=== PATIENT | female | born 2000 | race Hispanic/Latino ===

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

== ENCOUNTER 2022-01-11 00:15 | Emergency (ER) | payer OTHER ==
[2022-01-11] MEDS ORDERED: Ondansetron ODT 4 MG TAB ONE (01:23)
[2022-01-11] MEDS ORDERED: Ondansetron PF 4 MG/2 ML Vial ONE (02:19)
[2022-01-11 02:31] LABS: #Basophils 0.1 thou/uL (0.0-0.2); #Lymphocytes 1.3 thou/uL (1.20-3.40); #Monocytes 0.3 thou/uL (0.11-0.59); #Neutrophils 8.6 thou/uL (1.40-6.50); %Basophils 0.6 % (0.0-1.0); %Eosinophils 0.2 % (0.0-10.0); %Lymphocytes 12.7 % (28.0-48.0); %Monocytes 2.7 % (0.0-4.0); %Neutrophils 83.8 % (31.0-61.0); Hemoglobin 15.5 g/dL (12.0-16.0); Mean Corpuscular HGB CONC 34.9 g/dL (32.0-36.0); Mean Corpuscular Volume 88.7 fl (78.0-98.0); Mean Platelet Volume 7.9 fL (7.4-10.4); Platelet Count 447 10x3/uL (130-400); RBC Distribution Width 11.8 % (11.5-14.5); Red Blood Cell (RBC) Count 5.02 mill/uL (4.00-5.20); White Blood Cell (WBC) Count 10.2 10x3/uL (4.8-10.8)
[2022-01-11 02:36] LABS: BHCG - Serum Negative (NEGATIVE); Pregs Control Background? CLEAR/WHITE (CLR/WHITE); Pregs Control Bar Appear? YES (CONTROL BAR)
[2022-01-11] MEDS ORDERED: Promethazine 25 MG TAB ONE (02:47)
[2022-01-11 02:52] LABS: ALT (SGPT) 11 U/L (8-55); AST (SGOT) 18 U/L (5-30); Albumin 5.4 g/dL (3.5-5.0); Alkaline Phosphatase 79 U/L (40-100); Anion Gap 20 mmol/L (10-20); BUN (Urea Nitrogen) 20 mg/dL (8.4-21.0); Bilirubin, Total 1.2 mg/dL (0.2-1.2); Calc. Creatinine Clearance 0 mL/min (70-130); Calcium 10.9 mg/dL (7.8-10.44); Carbon Dioxide 23 mmol/L (22-29); Chloride 102 mmol/L (98-107); Estimated GFR 112; Globulin 3.7 g/dL (2.4-3.5); Glucose 125 mg/dL (70-105); Protein, Total 9.1 g/dL (6.0-8.3); Sodium 142 mmol/L (136-145)
[2022-01-11] MEDS ORDERED: Promethazine HCl 12.5 MG in Sodium Chloride 0.9% 50 ML IVPB SCH ×2 (03:00→10:45)
[2022-01-11] MEDS ORDERED: Haloperidol Lactate 5 MG/ML VIAL ONE (03:08)
[2022-01-11 03:23] LABS: SARS-CoV-2 NAA Rapid Test Not Detected (NotDetected)
[2022-01-11] MEDS ORDERED: Potassium Chloride 20 MEQ TAB ONE (03:24)
[2022-01-11 04:16] LABS: Magnesium 1.9 mg/dL (1.7-2.2)
[2022-01-11 06:07] LABS: Bilirubin Negative (Negative); Blood, Urine Negative (Negative); Clarity Clear (Clear); Glucose, Urine (Dipstick) Normal (Negative); Ketone, Urine 100 mg/dL (Negative); Leukocyte Negative Leu/uL (Negative); Nitrite Negative (Negative); Protein, Urine (Dipstick) 10 mg/dL (Neg-Trace); Urobilinogen Normal mg/dL (Less than 2)
[2022-01-11 06:10] LABS: Specific Gravity, Urine Greater than 1.060 (1.002-1.036)
[2022-01-11] MEDS ORDERED: Piperacillin/Tazobactam 4.5 GM VIAL ONE (07:48)
[2022-01-11] MEDS ORDERED: Iopamidol-370 76% 500 ML 1 ML ONE (08:51)
[2022-01-11] MEDS ORDERED: MD-Gastroview 120 ML BOT ONE (09:06)
[2022-01-11] MEDS ORDERED: FENTANYL 50 MCG/ML 1 ML VIAL ONE (10:36)
== END 2022-01-11 14:12 | disposition short-term general hospital (02) ==
LOC: ERS 00:15
DX: K52.9 Noninfective gastroenteritis and colitis, unspecified (principal); R11.15 Cyclical vomiting syndrome unrelated to migraine; F17.290 Nicotine dependence, other tobacco product, uncomplicated; Z20.822 Contact with and (suspected) exposure to COVID-19
CPT/HCPCS: 71045; 71250; 74177; 74220; 80053; 81003; 83735; 84703; 85025; 93005; 96361; 96374; 96375; 96376; J1630; J2405; J2543; J2550; J3010; Q0162; Q0169; Q9963; Q9967

== ENCOUNTER 2022-06-16 05:02 | Emergency (ER) | payer BC, OTHER ==
[2022-06-16] MEDS ORDERED: predniSONE 20 MG TAB ONE (05:20)
[2022-06-16] MEDS ORDERED: Ipratropium/Albuterol 3 ML NEB ONE (05:28)
== END 2022-06-16 06:12 | disposition home or self-care (01) ==
LOC: ERS 05:02
DX: J45.909 Unspecified asthma, uncomplicated (principal)
CPT/HCPCS: 71045; 94640; J7512; J7620

== ENCOUNTER 2022-06-16 07:36 | Inpatient (IN) | payer BC, OTHER ==
[2022-06-16] MEDS ORDERED: Acetaminophen 325 MG TAB ONE (09:23)
[2022-06-16] MEDS ORDERED: Ondansetron ODT 4 MG TAB ONE (09:23)
[2022-06-16 09:34] LABS: Hemoglobin 14.1 g/dL (12.0-16.0); Mean Corpuscular HGB CONC 34.7 g/dL (32.0-36.0); Mean Corpuscular Hemoglobin 30.7 pg (25.0-35.0); Mean Corpuscular Volume 88.5 fl (78.0-98.0); Mean Platelet Volume 7.7 fL (7.4-10.4); Platelet Count 325 10x3/uL (130-400); RBC Distribution Width 11.5 % (11.5-14.5); Red Blood Cell (RBC) Count 4.59 mill/uL (4.00-5.20); White Blood Cell (WBC) Count 17.5 10x3/uL (4.8-10.8)
[2022-06-16] MEDS ORDERED: Ketorolac Tromethamine 30 MG/ML VIAL ONE (09:39)
[2022-06-16 09:43] LABS: ALT (SGPT) 11 U/L (8-55); AST (SGOT) 16 U/L (5-34); Albumin 4.8 g/dL (3.5-5.0); Alkaline Phosphatase 66 U/L (40-100); Anion Gap 14 mmol/L (10-20); BUN (Urea Nitrogen) 7 mg/dL (7.0-18.7); Bilirubin, Total 0.4 mg/dL (0.2-1.2); Calc. Creatinine Clearance 0 mL/min (70-130); Calcium 10.3 mg/dL (7.8-10.44); Carbon Dioxide 20 mmol/L (22-29); Chloride 108 mmol/L (98-107); Estimated GFR 128; Globulin 3.3 g/dL (2.4-3.5); Glucose 116 mg/dL (70-105); Potassium 3.9 mmol/L (3.5-5.1); Protein, Total 8.1 g/dL (6.0-8.3); Sodium 138 mmol/L (136-145)
[2022-06-16 09:50] LABS: Band 16 % (5-11); Lymphocytes 4 % (28-48); MDiff Complete? YES; Monocytes 1 % (0-4); Neutrophil 79 % (31-61); Platelet Morphology Comment Appears Adequate; RBC Morphology Normal
[2022-06-16 10:17] LABS: SARS-CoV-2 NAA Rapid Test Not Detected (NotDetected)
[2022-06-16] MEDS ORDERED: Sodium Chloride 0.9% 100 ML ONE (10:44)
[2022-06-16] MEDS ORDERED: Morphine 4 MG/ML VIAL ONE (10:44)
[2022-06-16] MEDS ORDERED: cefTRIAXone (ROCEPHIN) 1 GM VIAL ONE (10:44)
[2022-06-16] MEDS ORDERED: Azithromycin 500 MG VIAL ONE (11:19)
[2022-06-16] MEDS ORDERED: Ondansetron PF 4 MG/2 ML Vial IVP PRN (11:28)
[2022-06-16 11:51] LABS: Bilirubin Negative (Negative); Blood, Urine Negative (Negative); Clarity Clear (Clear); Glucose, Urine (Dipstick) Normal (Negative); Ketone, Urine Trace mg/dL (Negative); Leukocyte Negative Leu/uL (Negative); Nitrite Negative (Negative); Protein, Urine (Dipstick) Negative (Neg-Trace); Specific Gravity, Urine 1.007 (1.002-1.036); Urobilinogen Normal mg/dL (Less than 2)
[2022-06-16] MEDS ORDERED: methylPREDNISolone Sod Succ 40 MG VIAL IVP SCH (12:30)
[2022-06-16] MEDS ORDERED: methylPREDNISolone Sod Succ 40 MG VIAL ONE (12:41)
[2022-06-16] MEDS: Lactated Ringer's 1,000 ML IV SCH ×2 (12:52→21:22)
[2022-06-16 16:44] VITALS: BMI 27.6
[2022-06-16] MEDS: Ipratropium Bromide 2.5 ml Neb NEB SCH ×3 (17:08→21:49)
[2022-06-16] MEDS: methylPREDNISolone Sod Succ 40 MG VIAL IVP SCH (17:32)
[2022-06-16] MEDS: Famotidine/PF 20 mg/2ml Vial SLOW IVP SCH (21:20)
[2022-06-17] MEDS: methylPREDNISolone Sod Succ 40 MG VIAL IVP SCH ×2 (00:57→06:32)
[2022-06-17] MEDS: Guaifenesin DM 100-10/5 ML UDCUP PO PRN ×2 (00:59→13:33)
[2022-06-17] MEDS: Ipratropium Bromide 2.5 ml Neb NEB SCH ×5 (02:03→23:20)
[2022-06-17 05:09] LABS: #Lymphocytes 0.5 thou/uL (1.20-3.40); #Monocytes 0.1 thou/uL (0.11-0.59); #Neutrophils 11.5 thou/uL (1.40-6.50); %Lymphocytes 3.8 % (28.0-48.0); %Monocytes 0.6 % (0.0-4.0); %Neutrophils 95.6 % (31.0-61.0); Hemoglobin 11.9 g/dL (12.0-16.0); Mean Corpuscular HGB CONC 34.9 g/dL (32.0-36.0); Mean Corpuscular Hemoglobin 31.3 pg (25.0-35.0); Mean Corpuscular Volume 89.8 fl (78.0-98.0); Mean Platelet Volume 7.8 fL (7.4-10.4); Platelet Count 290 10x3/uL (130-400); RBC Distribution Width 11.5 % (11.5-14.5); Red Blood Cell (RBC) Count 3.79 mill/uL (4.00-5.20); White Blood Cell (WBC) Count 12.1 10x3/uL (4.8-10.8)
[2022-06-17 05:30] LABS: Anion Gap 13 mmol/L (10-20); BUN (Urea Nitrogen) 7 mg/dL (7.0-18.7); Calc. Creatinine Clearance 142 mL/min (70-130); Carbon Dioxide 18 mmol/L (22-29); Chloride 112 mmol/L (98-107); Estimated GFR 131; Glucose 125 mg/dL (70-105); Potassium 3.8 mmol/L (3.5-5.1); Sodium 139 mmol/L (136-145)
[2022-06-17] MEDS: Lactated Ringer's 1,000 ML IV SCH ×2 (06:35→15:22)
[2022-06-17] MEDS: Famotidine/PF 20 mg/2ml Vial SLOW IVP SCH ×2 (08:36→20:20)
[2022-06-17] MEDS ORDERED: cefTRIAXone\\ROCEPHIN 1 GM in Sodium Chloride 0.9% 100 ML IVPB SCH (11:00)
[2022-06-17] MEDS ORDERED: Azithromycin 500 MG in Sodium Chloride 0.9% 250 ML 250 ML IVPB SCH (11:30)
[2022-06-17] MEDS ORDERED: Acetaminophen 325 MG TAB PO PRN (13:23)
[2022-06-17] MEDS ORDERED: Ibuprofen 600 MG TAB PO PRN (13:23)
[2022-06-18] MEDS: Lactated Ringer's 1,000 ML IV SCH ×2 (01:26→08:15)
[2022-06-18] MEDS: Ipratropium Bromide 2.5 ml Neb NEB SCH ×2 (02:16→06:48)
[2022-06-18] MEDS ORDERED: predniSONE 20 MG TAB PO SCH (08:00)
[2022-06-18] MEDS: Famotidine/PF 20 mg/2ml Vial SLOW IVP SCH (08:14)
[2022-06-18] MEDS: Guaifenesin DM 100-10/5 ML UDCUP PO PRN (08:14)
[2022-06-18 08:44] VITALS: BP 117/65; TEMP 98.9
[2022-06-18] MEDS ORDERED: Ipratropium/Albuterol 3 ML NEB NEB SCH (10:30)
== END 2022-06-18 11:05 | disposition home or self-care (01) | DRG 871 ==
LOC: ERS 07:36 → ERHOLD 11:15 → 2SW 16:03
PROVIDERS: ADMIT Internal Medicine; ATTEND Emergency Medicine
DX: A41.9 Sepsis, unspecified organism (principal); J18.9 Pneumonia, unspecified organism; J96.01 Acute respiratory failure with hypoxia; Z20.822 Contact with and (suspected) exposure to COVID-19
CPT/HCPCS: 36415; 71046; 80048; 80053; 81003; 83605; 85025; 87040; 87081; 87430; 93005; 94640; 96361; 96365; 96367; 96375; J0456; J0696; J1650; J1885; J2270; J2920; J3490; J7050; J7120; J7512; J7611; J7620; Q0162; S0028

== ENCOUNTER 2022-08-09 23:41 | Emergency (ER) | payer BC, OTHER ==
[2022-08-10] MEDS ORDERED: Haloperidol Lactate 5 MG/ML VIAL ONE (00:21)
[2022-08-10] MEDS ORDERED: Ketorolac Tromethamine 30 MG/ML VIAL ONE (00:21)
[2022-08-10] MEDS ORDERED: Famotidine/PF 20 mg/2ml Vial ONE (00:47)
[2022-08-10 00:56] LABS: #Eosinphils 0.1 thou/uL (0.0-0.7); #Monocytes 0.5 thou/uL (0.11-0.59); #Neutrophils 6.1 thou/uL (1.40-6.50); %Basophils 0.4 % (0.0-1.0); %Eosinophils 0.7 % (0.0-10.0); %Lymphocytes 21.7 % (28.0-48.0); %Monocytes 5.9 % (0.0-4.0); %Neutrophils 71.2 % (31.0-61.0); Hemoglobin 12.7 g/dL (12.0-16.0); Mean Corpuscular Hemoglobin 29.9 pg (25.0-35.0); Mean Corpuscular Volume 87.8 fl (78.0-98.0); Mean Platelet Volume 10.3 fL (7.4-10.4); Platelet Count 352 10x3/uL (130-400); RBC Distribution Width 12.6 % (11.5-14.5); Red Blood Cell (RBC) Count 4.25 mill/uL (4.00-5.20); White Blood Cell (WBC) Count 8.5 10x3/uL (4.8-10.8)
[2022-08-10 01:19] LABS: BHCG - Serum Negative (NEGATIVE); Pregs Control Background? CLEAR/WHITE (CLR/WHITE); Pregs Control Bar Appear? YES (CONTROL BAR)
[2022-08-10 01:22] LABS: ALT (SGPT) 9 U/L (8-55); AST (SGOT) 18 U/L (5-34); Albumin 4.5 g/dL (3.5-5.0); Alkaline Phosphatase 65 U/L (40-100); Anion Gap 18 mmol/L (10-20); BUN (Urea Nitrogen) 11 mg/dL (7.0-18.7); Bilirubin, Total 0.6 mg/dL (0.2-1.2); Calc. Creatinine Clearance 0 mL/min (70-130); Calcium 10.3 mg/dL (7.8-10.44); Carbon Dioxide 17 mmol/L (22-29); Chloride 107 mmol/L (98-107); Estimated GFR 128; Glucose 113 mg/dL (70-105); Lipase 20 U/L (8-78); Potassium 2.9 mmol/L (3.5-5.1); Protein, Total 7.5 g/dL (6.0-8.3); Sodium 139 mmol/L (136-145)
[2022-08-10] MEDS ORDERED: Potassium Chloride 20 MEQ TAB ONE (01:44)
[2022-08-10] MEDS ORDERED: Potassium Chloride 20 MEQ/100 ML PREMIX BAG ONE (01:44)
[2022-08-10] MEDS ORDERED: Morphine 4 MG/ML VIAL ONE (03:04)
[2022-08-10] MEDS ORDERED: Iopamidol-370 76% 500 ML MDV (1 ML CHARGE) ONE (17:07)
== END 2022-08-10 03:19 | disposition home or self-care (01) ==
LOC: ERS 23:41
DX: R10.13 Epigastric pain (principal)
CPT/HCPCS: 36415; 74177; 80053; 83690; 84484; 84703; 85025; 93005; 96361; 96365; 96375; J1630; J1885; J2270; J3480; Q9967; S0028

== ENCOUNTER 2022-10-04 07:53 | Emergency (ER) | payer BC, OTHER ==
[2022-10-04] MEDS ORDERED: Ondansetron ODT 4 MG TAB ONE (08:01)
[2022-10-04] MEDS ORDERED: Haloperidol Lactate 5 MG/ML VIAL ONE (08:18)
[2022-10-04 08:35] LABS: #Monocytes 0.3 thou/uL (0.11-0.59); #Neutrophils 7.2 thou/uL (1.40-6.50); %Basophils 0.3 % (0.0-1.0); %Eosinophils 0.2 % (0.0-10.0); %Lymphocytes 17.1 % (28.0-48.0); %Neutrophils 79.1 % (31.0-61.0); Hematocrit 39.5 % (36.0-47.0); Hemoglobin 13.7 g/dL (12.0-16.0); Mean Corpuscular HGB CONC 34.7 g/dL (32.0-36.0); Mean Corpuscular Volume 86.4 fl (78.0-98.0); Mean Platelet Volume 9.9 fL (7.4-10.4); Platelet Count 387 10x3/uL (130-400); RBC Distribution Width 12.7 % (11.5-14.5); Red Blood Cell (RBC) Count 4.57 mill/uL (4.00-5.20); White Blood Cell (WBC) Count 9.1 10x3/uL (4.8-10.8)
[2022-10-04 08:51] LABS: BHCG - Serum Negative (NEGATIVE); Pregs Control Background? CLEAR/WHITE (CLR/WHITE); Pregs Control Bar Appear? YES (CONTROL BAR)
[2022-10-04 08:58] LABS: ALT (SGPT) 11 U/L (8-55); AST (SGOT) 20 U/L (5-34); Albumin 4.7 g/dL (3.5-5.0); Alkaline Phosphatase 65 U/L (40-100); Anion Gap 16 mmol/L (10-20); BUN (Urea Nitrogen) 6 mg/dL (7.0-18.7); Bilirubin, Total 0.3 mg/dL (0.2-1.2); Calc. Creatinine Clearance 0 mL/min (70-130); Calcium 9.9 mg/dL (7.8-10.44); Carbon Dioxide 19 mmol/L (22-29); Chloride 106 mmol/L (98-107); Estimated GFR 125; Glucose 126 mg/dL (70-105); Potassium 3.4 mmol/L (3.5-5.1); Protein, Total 7.7 g/dL (6.0-8.3); Sodium 138 mmol/L (136-145)
== END 2022-10-04 09:21 | disposition home or self-care (01) ==
LOC: ERS 07:53
DX: R11.2 Nausea with vomiting, unspecified (principal)
CPT/HCPCS: 36415; 71045; 80053; 84703; 85025; 93005; 96374; J1630; Q0162

== ENCOUNTER 2022-11-28 10:04 | Emergency (ER) | payer BC, OTHER ==
[~2022-11-28 10:04] MED LIST changes: -Iopamidol 370 76% 100 ML VIAL ONE; +Iopamidol-370 76% 500 ML MDV (1 ML CHARGE) ONE
[2022-11-28] MEDS ORDERED: Ondansetron ODT 4 MG TAB ONE (11:07)
[2022-11-28] MEDS ORDERED: Metoclopramide HCl 10 MG/2 ML VIAL ONE (11:32)
[2022-11-28] MEDS ORDERED: Ketorolac Tromethamine 30 MG/ML VIAL ONE (11:32)
[2022-11-28 11:45] LABS: #Monocytes 0.3 thou/uL (0.11-0.59); #Neutrophils 9.8 thou/uL (1.40-6.50); %Basophils 0.4 % (0.0-1.0); %Eosinophils 0.2 % (0.0-10.0); %Monocytes 2.5 % (0.0-4.0); %Neutrophils 87.6 % (31.0-61.0); Hematocrit 39.2 % (36.0-47.0); Hemoglobin 13.4 g/dL (12.0-16.0); Mean Corpuscular HGB CONC 34.2 g/dL (32.0-36.0); Mean Corpuscular Hemoglobin 30.2 pg (25.0-35.0); Mean Corpuscular Volume 88.3 fl (78.0-98.0); Mean Platelet Volume 9.8 fL (7.4-10.4); Platelet Count 356 10x3/uL (130-400); RBC Distribution Width 12.2 % (11.5-14.5); Red Blood Cell (RBC) Count 4.44 mill/uL (4.00-5.20); White Blood Cell (WBC) Count 11.2 10x3/uL (4.8-10.8)
[2022-11-28 11:50] LABS: Pregu Control Background? CLEAR/WHITE (CLR/WHITE); Pregu Control Bar Appear? YES (CONTROL BAR); Specific Gravity 1.021 (1.002-1.036)
[2022-11-28 11:53] LABS: BHCG - Serum Negative (NEGATIVE); Pregs Control Background? CLEAR/WHITE (CLR/WHITE); Pregs Control Bar Appear? YES (CONTROL BAR)
[2022-11-28 11:53] LABS: Pregnancy Test - Urine (BHCG) Negative (Negative)
[2022-11-28 12:15] LABS: ALT (SGPT) 9 U/L (8-55); AST (SGOT) 14 U/L (5-34); Albumin 4.8 g/dL (3.5-5.0); Alkaline Phosphatase 63 U/L (40-100); Anion Gap 16 mmol/L (10-20); BUN (Urea Nitrogen) 16 mg/dL (7.0-18.7); Bilirubin, Total 0.4 mg/dL (0.2-1.2); Calc. Creatinine Clearance 0 mL/min (70-130); Calcium 10.2 mg/dL (7.8-10.44); Carbon Dioxide 22 mmol/L (22-29); Chloride 103 mmol/L (98-107); Estimated GFR 130; Glucose 106 mg/dL (70-105); Lipase 24 U/L (8-78); Potassium 3.5 mmol/L (3.5-5.1); Protein, Total 7.8 g/dL (6.0-8.3); Sodium 137 mmol/L (136-145)
== END 2022-11-28 13:25 | disposition home or self-care (01) ==
LOC: ERS 10:04
DX: R11.2 Nausea with vomiting, unspecified (principal); R10.9 Unspecified abdominal pain; F12.10 Cannabis abuse, uncomplicated; N83.291 Other ovarian cyst, right side; Z11.52 Encounter for screening for COVID-19
CPT/HCPCS: 71046; 74177; 80053; 81025; 83690; 84703; 85025; 87635; 93005; 96361; 96374; 96375; J1885; J2765; Q0162; Q9967

== ENCOUNTER 2023-01-08 14:09 | Emergency (ER) | payer BC, OTHER ==
[2023-01-08] MEDS ORDERED: Ondansetron PF 4 MG/2 ML Vial ONE (14:31)
[2023-01-08] MEDS ORDERED: Morphine 4 MG/ML VIAL ONE (14:48)
[2023-01-08 15:06] LABS: #Monocytes 0.3 thou/uL (0.11-0.59); #Neutrophils 9.8 thou/uL (1.40-6.50); %Basophils 0.3 % (0.0-1.0); %Lymphocytes 9.6 % (28.0-48.0); %Monocytes 2.9 % (0.0-4.0); %Neutrophils 86.7 % (31.0-61.0); Hematocrit 42.9 % (36.0-47.0); Mean Corpuscular Hemoglobin 30.1 pg (25.0-35.0); Platelet Count 411 10x3/uL (130-400); RBC Distribution Width 11.9 % (11.5-14.5); Red Blood Cell (RBC) Count 4.99 mill/uL (4.00-5.20); White Blood Cell (WBC) Count 11.3 10x3/uL (4.8-10.8)
[2023-01-08 15:29] LABS: ALT (SGPT) 11 U/L (8-55); AST (SGOT) 18 U/L (5-34); Albumin 5.2 g/dL (3.5-5.0); Alkaline Phosphatase 79 U/L (40-100); Anion Gap 19 mmol/L (10-20); BUN (Urea Nitrogen) 18 mg/dL (7.0-18.7); Bilirubin, Total 0.9 mg/dL (0.2-1.2); Calc. Creatinine Clearance 0 mL/min (70-130); Calcium 10.7 mg/dL (7.8-10.44); Carbon Dioxide 19 mmol/L (22-29); Chloride 103 mmol/L (98-107); Estimated GFR 119; Globulin 3.6 g/dL (2.4-3.5); Glucose 125 mg/dL (70-105); Lipase 16 U/L (8-78); Potassium 3.3 mmol/L (3.5-5.1); Protein, Total 8.8 g/dL (6.0-8.3); Sodium 138 mmol/L (136-145)
[2023-01-08 18:29] LABS: Lactic Acid 0.9 mmol/L (0.5-2.2)
[2023-01-08 18:53] LABS: Bacteria/HPF None Seen HPF (None Seen); Bilirubin Negative (Negative); Blood, Urine 2+ (Negative); CAUTI Indications for Culture Pelvic or flank pain; Clarity Clear (Clear); Glucose, Urine (Dipstick) Normal (Negative); Ketone, Urine Greater than 150 mg/dL (Negative); Leukocyte Negative Leu/uL (Negative); Nitrite Negative (Negative); Protein, Urine (Dipstick) 20 mg/dL (Neg-Trace); RBC/HPF 21-50 HPF (0-3); Specific Gravity, Urine 1.026 (1.002-1.036); Squamous Epithelial 0-3 HPF (0-3); Urobilinogen Normal mg/dL (Less than 2); WBC/HPF 0-3 HPF (0-3)
[2023-01-08 18:54] LABS: Pregnancy Test - Urine (BHCG) Negative (Negative); Pregu Control Background? CLEAR/WHITE (CLR/WHITE); Pregu Control Bar Appear? YES (CONTROL BAR); Specific Gravity 1.026 (1.002-1.036)
[2023-01-08 18:56] LABS: Urine Culture Reflex No No
== END 2023-01-08 19:03 | disposition home or self-care (01) ==
LOC: ERS 14:09
DX: R19.7 Diarrhea, unspecified (principal); R11.2 Nausea with vomiting, unspecified
CPT/HCPCS: 36415; 76705; 80053; 81001; 81025; 83605; 83690; 85025; 96361; 96374; 96375; J2270; J2405

== ENCOUNTER 2023-02-03 08:46 | Emergency (ER) | payer BC, OTHER ==
[2023-02-03] MEDS ORDERED: Ondansetron ODT 4 MG TAB ONE (09:27)
[2023-02-03 09:41] LABS: Bilirubin Negative (Negative); Blood, Urine Small (Negative); Glucose, Urine (Dipstick) Negative (Negative); Ketone, Urine Negative (Negative); Leukocyte Negative (Negative); Nitrite Negative (Negative); Protein, Urine (Dipstick) Negative (Neg-Trace); Urobilinogen 0.2 mg/dL (Less than 2)
[2023-02-03 09:45] LABS: Clarity Hazy (Clear); Pregnancy Test - Urine (BHCG) Negative (Negative); Pregu Control Background? CLEAR/WHITE (CLR/WHITE); Pregu Control Bar Appear? YES (CONTROL BAR)
[2023-02-03 09:48] LABS: CAUTI Indications for Culture Dysuria,urgency,freq; RBC/HPF 0-3 HPF (0-3); WBC/HPF None Seen HPF (0-3)
[2023-02-03 09:49] LABS: Bacteria/HPF None Seen HPF (None Seen); Urine Culture Reflex No No
[2023-02-03 09:52] LABS: Amphetamine Not Detected (NotDetected); Barbiturates Screen Not Detected (NotDetected); Benzodiazepine Screen Not Detected (NotDetected); Cocaine Metabolite Screen Not Detected (NotDetected); Methadone Not Detected (NotDetected); Methamphetamine Not Detected (NotDetected); Opiate Screen Not Detected (NotDetected); Oxycodone Screen Not Detected (NotDetected); Phencyclidine (PCP) Not Detected (NotDetected); THC/Cannabinoid Screen Detected (NotDetected); Tricyclic Screen Not Detected (NotDetected)
[2023-02-03] MEDS ORDERED: Dicyclomine 20 MG/2 ML VIAL ONE (10:41)
[2023-02-03] MEDS ORDERED: diphenhydrAMINE 50 MG/ML VIAL ONE (11:01)
[2023-02-03] MEDS ORDERED: Haloperidol Lactate 5 MG/ML VIAL ONE (11:02)
[2023-02-03 11:04] LABS: #Eosinphils 0.1 thou/uL (0.0-0.7); #Monocytes 0.3 thou/uL (0.11-0.59); %Basophils 0.5 % (0.0-1.0); %Eosinophils 0.8 % (0.0-10.0); %Lymphocytes 12.3 % (28.0-48.0); %Neutrophils 83.2 % (31.0-61.0); Hematocrit 41.2 % (36.0-47.0); Hemoglobin 14.1 g/dL (12.0-16.0); Mean Corpuscular HGB CONC 34.2 g/dL (32.0-36.0); Mean Corpuscular Hemoglobin 30.5 pg (25.0-35.0); Mean Corpuscular Volume 89.2 fl (78.0-98.0); Mean Platelet Volume 9.8 fL (7.4-10.4); Platelet Count 339 10x3/uL (130-400); RBC Distribution Width 12.3 % (11.5-14.5); Red Blood Cell (RBC) Count 4.62 mill/uL (4.00-5.20); White Blood Cell (WBC) Count 8.5 10x3/uL (4.8-10.8)
[2023-02-03 11:30] LABS: ALT (SGPT) 9 U/L (8-55); AST (SGOT) 18 U/L (5-34); Albumin 4.7 g/dL (3.5-5.0); Alkaline Phosphatase 59 U/L (40-100); Anion Gap 12 mmol/L (10-20); BUN (Urea Nitrogen) 13 mg/dL (7.0-18.7); Bilirubin, Total 0.6 mg/dL (0.2-1.2); Calc. Creatinine Clearance 0 mL/min (70-130); Carbon Dioxide 24 mmol/L (22-29); Chloride 107 mmol/L (98-107); Estimated GFR 129; Globulin 2.9 g/dL (2.4-3.5); Glucose 105 mg/dL (70-105); Potassium 4.1 mmol/L (3.5-5.1); Protein, Total 7.6 g/dL (6.0-8.3); Sodium 139 mmol/L (136-145)
== END 2023-02-03 12:59 | disposition home or self-care (01) ==
LOC: ERS 08:46
DX: R11.2 Nausea with vomiting, unspecified (principal)
CPT/HCPCS: 80053; 80306; 81001; 81025; 85025; 96361; 96372; 96374; 96375; J1200; J1630; Q0162

== ENCOUNTER 2023-02-04 07:30 | Emergency (ER) | payer BC ==
[2023-02-04 08:35] LABS: #Eosinphils 0.1 thou/uL (0.0-0.7); #Monocytes 0.3 thou/uL (0.11-0.59); #Neutrophils 3.4 thou/uL (1.40-6.50); %Basophils 0.4 % (0.0-1.0); %Eosinophils 2.1 % (0.0-10.0); %Lymphocytes 25.1 % (28.0-48.0); %Monocytes 6.1 % (0.0-4.0); %Neutrophils 65.9 % (31.0-61.0); Hematocrit 38.7 % (36.0-47.0); Hemoglobin 12.9 g/dL (12.0-16.0); Mean Corpuscular HGB CONC 33.3 g/dL (32.0-36.0); Mean Platelet Volume 9.8 fL (7.4-10.4); Platelet Count 281 10x3/uL (130-400); RBC Distribution Width 12.3 % (11.5-14.5); White Blood Cell (WBC) Count 5.2 10x3/uL (4.8-10.8)
[2023-02-04 08:39] LABS: BHCG - Serum Negative (NEGATIVE); Pregs Control Background? CLEAR/WHITE (CLR/WHITE); Pregs Control Bar Appear? YES (CONTROL BAR)
[2023-02-04] MEDS ORDERED: Ondansetron PF 4 MG/2 ML Vial ONE (08:40)
[2023-02-04] MEDS ORDERED: Ipratropium/Albuterol 3 ML NEB ONE (08:55)
[2023-02-04 08:56] LABS: ALT (SGPT) 10 U/L (8-55); AST (SGOT) 24 U/L (5-34); Albumin 4.4 g/dL (3.5-5.0); Alkaline Phosphatase 58 U/L (40-100); Anion Gap 14 mmol/L (10-20); BUN (Urea Nitrogen) 12 mg/dL (7.0-18.7); Bilirubin, Total 0.7 mg/dL (0.2-1.2); Calc. Creatinine Clearance 0 mL/min (70-130); Calcium 9.5 mg/dL (7.8-10.44); Carbon Dioxide 19 mmol/L (22-29); Chloride 108 mmol/L (98-107); Estimated GFR 129; Globulin 3.1 g/dL (2.4-3.5); Glucose 96 mg/dL (70-105); Potassium 3.6 mmol/L (3.5-5.1); Protein, Total 7.5 g/dL (6.0-8.3); Sodium 137 mmol/L (136-145)
[2023-02-04 09:03] LABS: Bilirubin Negative (Negative); Blood, Urine Large (Negative); Glucose, Urine (Dipstick) Negative (Negative); Ketone, Urine 15 mg/dL (Negative); Leukocyte Negative (Negative); Nitrite Negative (Negative); Protein, Urine (Dipstick) Negative (Neg-Trace); Urobilinogen 0.2 mg/dL (Less than 2)
[2023-02-04 09:13] LABS: CAUTI Indications for Culture Pelvic or flank pain; Clarity Clear (Clear); RBC/HPF Greater than 50 HPF (0-3); Squamous Epithelial 0-3 HPF (0-3)
[2023-02-04 09:16] LABS: Bacteria/HPF 1+ HPF (None Seen)
[2023-02-04 09:17] LABS: Urine Culture Reflex No No
[2023-02-04 09:49] LABS: SARS-CoV-2 NAA Rapid Test Not Detected (NotDetected)
== END 2023-02-04 10:26 | disposition home or self-care (01) ==
LOC: ERS 07:30
DX: J45.909 Unspecified asthma, uncomplicated (principal); Z20.822 Contact with and (suspected) exposure to COVID-19
CPT/HCPCS: 36415; 71045; 80053; 81001; 84703; 85025; 94640; 96361; 96374; J2405; J7620

== ENCOUNTER 2023-02-05 10:05 | Emergency (ER) | payer BC ==
[2023-02-05 11:06] LABS: #Monocytes 0.4 thou/uL (0.11-0.59); #Neutrophils 6.9 thou/uL (1.40-6.50); %Basophils 0.4 % (0.0-1.0); %Eosinophils 0.4 % (0.0-10.0); %Lymphocytes 18.2 % (28.0-48.0); %Monocytes 4.3 % (0.0-4.0); %Neutrophils 76.5 % (31.0-61.0); Hematocrit 36.9 % (36.0-47.0); Hemoglobin 12.9 g/dL (12.0-16.0); Mean Corpuscular Hemoglobin 30.4 pg (25.0-35.0); Mean Corpuscular Volume 86.8 fl (78.0-98.0); Mean Platelet Volume 9.7 fL (7.4-10.4); Platelet Count 320 10x3/uL (130-400); RBC Distribution Width 12.1 % (11.5-14.5); Red Blood Cell (RBC) Count 4.25 mill/uL (4.00-5.20); White Blood Cell (WBC) Count 9.1 10x3/uL (4.8-10.8)
[2023-02-05] MEDS ORDERED: Haloperidol Lactate 5 MG/ML VIAL ONE (11:12)
[2023-02-05 11:31] LABS: ALT (SGPT) 9 U/L (8-55); AST (SGOT) 19 U/L (5-34); Albumin 4.7 g/dL (3.5-5.0); Alkaline Phosphatase 57 U/L (40-100); Anion Gap 17 mmol/L (10-20); BUN (Urea Nitrogen) 11 mg/dL (7.0-18.7); Bilirubin, Total 0.7 mg/dL (0.2-1.2); Calc. Creatinine Clearance 0 mL/min (70-130); Carbon Dioxide 18 mmol/L (22-29); Chloride 108 mmol/L (98-107); Estimated GFR 129; Globulin 2.9 g/dL (2.4-3.5); Glucose 97 mg/dL (70-105); Potassium 3.5 mmol/L (3.5-5.1); Protein, Total 7.6 g/dL (6.0-8.3); Sodium 139 mmol/L (136-145)
[2023-02-05 11:54] LABS: Bacteria/HPF None Seen HPF (None Seen); Bilirubin Negative (Negative); Blood, Urine 1+ (Negative); CAUTI Indications for Culture Dysuria,urgency,freq; Clarity Clear (Clear); Glucose, Urine (Dipstick) Normal (Negative); Ketone, Urine 60 mg/dL (Negative); Leukocyte Negative Leu/uL (Negative); Nitrite Negative (Negative); Protein, Urine (Dipstick) Negative (Neg-Trace); RBC/HPF 0-3 HPF (0-3); Specific Gravity, Urine 1.014 (1.002-1.036); Squamous Epithelial 0-3 HPF (0-3); Urobilinogen Normal mg/dL (Less than 2); WBC/HPF 0-3 HPF (0-3); pH, Urine 6.5 (5.0-9.0)
[2023-02-05 12:02] LABS: Urine Culture Reflex No No
== END 2023-02-05 12:24 | disposition home or self-care (01) ==
LOC: ERS 10:05
DX: F12.288 Cannabis dependence with other cannabis-induced disorder (principal); R19.7 Diarrhea, unspecified; R11.10 Vomiting, unspecified
CPT/HCPCS: 36415; 80053; 81001; 85025; 96361; 96374; 96375; J1630

== ENCOUNTER 2023-04-18 00:38 | Emergency (ER) | payer BC ==
[2023-04-18 01:36] LABS: #Monocytes 0.3 thou/uL (0.11-0.59); #Neutrophils 9.5 thou/uL (1.40-6.50); %Basophils 0.2 % (0.0-1.0); %Eosinophils 0.1 % (0.0-10.0); %Lymphocytes 15.1 % (21.0-51.0); %Monocytes 2.5 % (0.0-10.0); %Neutrophils 81.8 % (42.0-75.0); Hematocrit 39.2 % (36.0-47.0); Hemoglobin 13.8 g/dL (12.0-16.0); Mean Corpuscular HGB CONC 35.2 g/dL (32.0-36.0); Mean Corpuscular Hemoglobin 29.9 pg (27.0-31.0); Mean Platelet Volume 9.9 fL (7.4-10.4); Platelet Count 388 10x3/uL (130-400); RBC Distribution Width 12.3 % (11.5-14.5); Red Blood Cell (RBC) Count 4.61 mill/uL (4.20-5.40); White Blood Cell (WBC) Count 11.6 10x3/uL (4.8-10.8)
[2023-04-18 01:47] LABS: ALT (SGPT) 10 U/L (8-55); AST (SGOT) 17 U/L (5-34); Albumin 4.8 g/dL (3.5-5.0); Alkaline Phosphatase 57 U/L (40-110); Anion Gap 14 mmol/L (10-20); BUN (Urea Nitrogen) 12 mg/dL (7.0-18.7); Bilirubin, Total 0.7 mg/dL (0.2-1.2); Calc. Creatinine Clearance 0 mL/min (70-130); Calcium 10.3 mg/dL (7.8-10.44); Carbon Dioxide 20 mmol/L (22-29); Chloride 107 mmol/L (98-107); Estimated GFR 124; Glucose 132 mg/dL (70-105); Lipase 17 U/L (8-78); Potassium 3.2 mmol/L (3.5-5.1); Protein, Total 7.8 g/dL (6.0-8.3); Sodium 138 mmol/L (136-145)
[2023-04-18] MEDS ORDERED: Ondansetron ODT 4 MG TAB ONE (01:54)
[2023-04-18] MEDS ORDERED: Ondansetron PF 4 MG/2 ML Vial ONE (02:23)
[2023-04-18 02:42] LABS: BHCG - Serum Negative (NEGATIVE)
[2023-04-18 02:43] LABS: Pregs Control Background? CLEAR/WHITE (CLR/WHITE); Pregs Control Bar Appear? YES (CONTROL BAR)
== END 2023-04-18 03:38 | disposition home or self-care (01) ==
LOC: ERS 00:38
DX: R11.2 Nausea with vomiting, unspecified (principal)
CPT/HCPCS: 36415; 80053; 83690; 84703; 85025; 96361; 96374; J2405; Q0162

== ENCOUNTER 2023-04-22 01:30 | Inpatient (IN) | payer BC, OTHER, SELFPAY ==
[2023-04-22] MEDS ORDERED: diphenhydrAMINE 50 MG/ML VIAL ONE ×2 (01:55→02:54)
[2023-04-22] MEDS ORDERED: Haloperidol Lactate 5 MG/ML VIAL ONE (01:56)
[2023-04-22] MEDS ORDERED: Ketorolac Tromethamine 30 MG (1 mL) VIAL ONE (01:56)
[2023-04-22 02:10] LABS: #Monocytes 0.5 thou/uL (0.11-0.59); #Neutrophils 11.7 thou/uL (1.40-6.50); %Basophils 0.2 % (0.0-1.0); %Eosinophils 0.1 % (0.0-10.0); %Lymphocytes 6.2 % (21.0-51.0); %Monocytes 3.9 % (0.0-10.0); %Neutrophils 89.1 % (42.0-75.0); Hematocrit 41.5 % (36.0-47.0); Hemoglobin 14.8 g/dL (12.0-16.0); Mean Corpuscular HGB CONC 35.7 g/dL (32.0-36.0); Mean Corpuscular Hemoglobin 29.7 pg (27.0-31.0); Mean Corpuscular Volume 83.3 fl (78.0-98.0); Mean Platelet Volume 9.9 fL (7.4-10.4); Platelet Count 320 10x3/uL (130-400); RBC Distribution Width 12.3 % (11.5-14.5); Red Blood Cell (RBC) Count 4.98 mill/uL (4.20-5.40); White Blood Cell (WBC) Count 13.1 10x3/uL (4.8-10.8)
[2023-04-22 02:30] LABS: Acetaminophen 19 mcg/mL (10.0-30.0); Alcohol Less than 10.0 mg/dL (Less than 10); Salicylate Less than 8.0 mg/dL (15.0-30.0)
[2023-04-22 02:31] LABS: ALT (SGPT) 12 U/L (8-55); AST (SGOT) 21 U/L (5-34); Albumin 4.7 g/dL (3.5-5.0); Alkaline Phosphatase 63 U/L (40-110); Anion Gap 19 mmol/L (10-20); BUN (Urea Nitrogen) 11 mg/dL (7.0-18.7); Bilirubin, Total 1.2 mg/dL (0.2-1.2); CK (CPK) 53 U/L (29-168); Calc. Creatinine Clearance 0 mL/min (70-130); Calcium 10.1 mg/dL (7.8-10.44); Carbon Dioxide 21 mmol/L (22-29); Chloride 102 mmol/L (98-107); Estimated GFR 116; Globulin 3.5 g/dL (2.4-3.5); Glucose 113 mg/dL (70-105); Lipase 15 U/L (8-78); Protein, Total 8.2 g/dL (6.0-8.3); Sodium 139 mmol/L (136-145)
[2023-04-22 02:43] LABS: Critical Call Chemistry NUR.SH13@0243; Potassium 2.5 mmol/L (3.5-5.1)
[2023-04-22] MEDS ORDERED: Potassium Chloride 20 MEQ TAB ONE (02:46)
[2023-04-22 02:51] LABS: BHCG - Serum Negative (NEGATIVE); Pregs Control Background? CLEAR/WHITE (CLR/WHITE); Pregs Control Bar Appear? YES (CONTROL BAR)
[2023-04-22] MEDS ORDERED: Metoclopramide HCl 10 MG (2 mL) VIAL ONE (02:55)
[2023-04-22 03:24] LABS: Bacteria/HPF None Seen HPF (None Seen); Bilirubin Negative (Negative); Blood, Urine 3+ (Negative); CAUTI Indications for Culture Fever or rigors; Clarity Clear (Clear); Glucose, Urine (Dipstick) Normal (Negative); Ketone, Urine Greater than 150 mg/dL (Negative); Leukocyte Negative Leu/uL (Negative); Nitrite Negative (Negative); Protein, Urine (Dipstick) 50 mg/dL (Neg-Trace); RBC/HPF 21-50 HPF (0-3); Specific Gravity, Urine 1.043 (1.002-1.036); Urine Culture Reflex No No
[2023-04-22 03:25] LABS: Amphetamine Not Detected (NotDetected); Barbiturates Screen Not Detected (NotDetected); Benzodiazepine Screen Not Detected (NotDetected); Cocaine Metabolite Screen Not Detected (NotDetected); Methadone Not Detected (NotDetected); Methamphetamine Not Detected (NotDetected); Opiate Screen Not Detected (NotDetected); Oxycodone Screen Not Detected (NotDetected); Phencyclidine (PCP) Not Detected (NotDetected); THC/Cannabinoid Screen Detected (NotDetected); Tricyclic Screen Not Detected (NotDetected)
[2023-04-22 04:12] LABS: Influenza A by NAA Not Detected (NotDetected); Influenza B by NAA Not Detected (NotDetected); SARS-CoV-2 NAA Rapid Test Not Detected (NotDetected)
[2023-04-22] MEDS ORDERED: D5 1/2 NS w/20 mEq KCL 1,000 ML ONE (05:10)
[2023-04-22] MEDS ORDERED: Ondansetron PF 4 MG/2 ML Vial IVP PRN (06:00)
[2023-04-22] MEDS ORDERED: Ondansetron ODT 4 MG TAB SL PRN (06:00)
[2023-04-22] MEDS: D5 1/2 NS w/20 mEq KCL 1,000 ML IV SCH (07:00)
[2023-04-22 07:46] VITALS: BMI 28.3
[2023-04-22] MEDS ORDERED: Acetaminophen 650 MG Suppository PR PRN (09:03)
[2023-04-22] MEDS: Potassium Chloride 20 MEQ TAB PO SCH (09:32)
[2023-04-22] MEDS ORDERED: Albuterol 2.5 MG (3 mL) NEB NEB PRN (09:42)
[2023-04-22 12:03] LABS: Magnesium 1.6 mg/dL (1.6-2.6)
[2023-04-22 13:20] LABS: Anion Gap 9 mmol/L (10-20); BUN (Urea Nitrogen) 4 mg/dL (7.0-18.7); Calc. Creatinine Clearance 168 mL/min (70-130); Calcium 8.1 mg/dL (7.8-10.44); Carbon Dioxide 20 mmol/L (22-29); Chloride 111 mmol/L (98-107); Estimated GFR 135; Glucose 122 mg/dL (70-105); Potassium 3.1 mmol/L (3.5-5.1); Sodium 137 mmol/L (136-145)
[2023-04-22] MEDS: Magnesium 2 GM/50 ML(in water) 2 GM in Premix 1 BAG IVPB SCH (14:58)
[2023-04-23] MEDS: Acetaminophen 325 MG TAB PO PRN (02:00)
[2023-04-23 02:16] LABS: Campy jejuni + coli by PCR Negative (Negative); STEC Shiga Toxin 1+2 Negative (Negative); Salmonella spp. by PCR Negative (Negative); Shigella spp + EIEC by PCR Negative (Negative)
[2023-04-23 05:22] LABS: #Eosinphils 0.1 thou/uL (0.0-0.7); #Monocytes 0.8 thou/uL (0.11-0.59); #Neutrophils 6.5 thou/uL (1.40-6.50); %Basophils 0.3 % (0.0-1.0); %Eosinophils 1.1 % (0.0-10.0); %Lymphocytes 18.5 % (21.0-51.0); %Monocytes 9.2 % (0.0-10.0); %Neutrophils 70.8 % (42.0-75.0); Hematocrit 35.2 % (36.0-47.0); Hemoglobin 12.3 g/dL (12.0-16.0); Mean Corpuscular HGB CONC 34.9 g/dL (32.0-36.0); Mean Corpuscular Hemoglobin 29.9 pg (27.0-31.0); Mean Corpuscular Volume 85.6 fl (78.0-98.0); Platelet Count 248 10x3/uL (130-400); RBC Distribution Width 12.5 % (11.5-14.5); Red Blood Cell (RBC) Count 4.11 mill/uL (4.20-5.40); White Blood Cell (WBC) Count 9.2 10x3/uL (4.8-10.8)
[2023-04-23 06:00] LABS: Anion Gap 15 mmol/L (10-20); BUN (Urea Nitrogen) Less than 4 mg/dL (7.0-18.7); Calc. Creatinine Clearance 142 mL/min (70-130); Calcium 8.7 mg/dL (7.8-10.44); Carbon Dioxide 19 mmol/L (22-29); Chloride 110 mmol/L (98-107); Estimated GFR 129; Glucose 118 mg/dL (70-105); Potassium 3.2 mmol/L (3.5-5.1); Sodium 141 mmol/L (136-145)
[2023-04-23 09:41] LABS: Magnesium 1.9 mg/dL (1.6-2.6); Phosphorus 1.6 mg/dL (2.3-4.7)
[2023-04-23] MEDS: Potassium Bicarbonate/Cit Ac 20 MEQ TAB PO SCH (10:07)
[2023-04-23] MEDS ORDERED: Potassium Phosphate 30 MMOL in Sodium Chloride 0.9% 500 ML IVPB SCH (14:30)
[2023-04-23] MEDS ORDERED: Magnesium 2 GM/50 ML(in water) 2 GM in Premix 1 BAG IVPB SCH (14:30)
[2023-04-23] MEDS ORDERED: Magnesium Sulfate 4 GM in Sodium Chloride 0.9% 250 ML 250 ML IVPB SCH (14:30)
[2023-04-23] MEDS: Potassium Phosphate 30 MMOL in Sodium Chloride 0.9% 500 ML IVPB SCH (17:03)
[2023-04-23 20:54] VITALS: TEMP 97.6
[2023-04-23 23:51] VITALS: BP 150/71
== END 2023-04-24 00:40 | disposition home or self-care (01) | DRG 392 ==
LOC: ERS 01:30 → 2NO 05:47
PROVIDERS: ADMIT Student in an Organized Health Care Education/Training Program; ATTEND Internal Medicine
DX: R11.2 Nausea with vomiting, unspecified (principal); R65.10 Systemic inflammatory response syndrome (SIRS) of non-infectious origin without acute organ dysfunction; F12.90 Cannabis use, unspecified, uncomplicated; E87.6 Hypokalemia; R00.0 Tachycardia, unspecified; F41.9 Anxiety disorder, unspecified; F32.A Depression, unspecified; Z79.899 Other long term (current) drug therapy; J45.909 Unspecified asthma, uncomplicated; E83.39 Other disorders of phosphorus metabolism; D72.829 Elevated white blood cell count, unspecified; E86.0 Dehydration; E83.42 Hypomagnesemia
CPT/HCPCS: 36415; 71045; 74176; 80048; 80053; 80306; 80307; 81001; 82550; 83605; 83690; 83735; 84100; 84703; 85025; 87040; 87505; 93005; 93010; 96361; 96365; 96375; 96376; J1200; J1630; J1885; J2765; J3475; J3480; J7030

== ENCOUNTER 2023-04-30 20:26 | Emergency (ER) | payer OTHER, SELFPAY ==
[2023-04-30 21:10] LABS: #Basophils 0.1 thou/uL (0.0-0.2); #Eosinphils 0.1 thou/uL (0.0-0.7); #Monocytes 0.5 thou/uL (0.11-0.59); #Neutrophils 9.4 thou/uL (1.40-6.50); %Basophils 0.4 % (0.0-1.0); %Lymphocytes 14.6 % (21.0-51.0); %Monocytes 4.4 % (0.0-10.0); %Neutrophils 78.9 % (42.0-75.0); Hemoglobin 11.9 g/dL (12.0-16.0); Mean Corpuscular Hemoglobin 28.9 pg (27.0-31.0); Platelet Count 460 10x3/uL (130-400); RBC Distribution Width 12.7 % (11.5-14.5); Red Blood Cell (RBC) Count 4.12 mill/uL (4.20-5.40); White Blood Cell (WBC) Count 11.9 10x3/uL (4.8-10.8)
[2023-04-30 21:26] LABS: ALT (SGPT) 8 U/L (8-55); AST (SGOT) 13 U/L (5-34); Albumin 4.2 g/dL (3.5-5.0); Alkaline Phosphatase 56 U/L (40-110); Anion Gap 14 mmol/L (10-20); BUN (Urea Nitrogen) 9 mg/dL (7.0-18.7); Bilirubin, Total 0.2 mg/dL (0.2-1.2); Calc. Creatinine Clearance 0 mL/min (70-130); Calcium 9.3 mg/dL (7.8-10.44); Carbon Dioxide 22 mmol/L (22-29); Chloride 107 mmol/L (98-107); Estimated GFR 130; Globulin 2.5 g/dL (2.4-3.5); Glucose 97 mg/dL (70-105); Lipase 23 U/L (8-78); Magnesium 1.9 mg/dL (1.6-2.6); Potassium 3.3 mmol/L (3.5-5.1); Protein, Total 6.7 g/dL (6.0-8.3); Sodium 140 mmol/L (136-145)
[2023-04-30] MEDS ORDERED: Potassium Chloride 20 MEQ TAB ONE (22:28)
== END 2023-04-30 22:37 | disposition home or self-care (01) ==
LOC: ERS 20:26
DX: E87.6 Hypokalemia (principal); R11.2 Nausea with vomiting, unspecified
CPT/HCPCS: 80053; 83690; 83735; 85025; 93005; 96361; 96374; J1790

== ENCOUNTER 2023-07-05 03:13 | Emergency (ER) | payer SELFPAY ==
[2023-07-05] MEDS ORDERED: Ondansetron PF 4 MG/2 ML Vial ONE (03:23)
[2023-07-05 03:58] LABS: #Basophils 0.03 10x3/uL (0.0-0.2); #Eosinphils Less than 0.03 10x3/uL (0.0-0.7); %Basophils 0.4 % (0.0-1.0); %Eosinophils 0.1 % (0.0-10.0); %Lymphocytes 20.8 % (21.0-51.0); %Monocytes 5.2 % (0.0-10.0); %Neutrophils 73.1 % (42.0-75.0); Hematocrit 39.6 % (36.0-47.0); Hemoglobin 13.8 g/dL (12.0-16.0); Mean Corpuscular HGB CONC 34.8 g/dL (32.0-36.0); Mean Corpuscular Hemoglobin 29.7 pg (27.0-31.0); Mean Corpuscular Volume 85.2 fL (78.0-98.0); Mean Platelet Volume 9.9 fL (7.4-10.4); Platelet Count 443 10x3/uL (130-400); RBC Distribution Width 12.7 % (11.5-14.5); Red Blood Cell (RBC) Count 4.65 mill/uL (4.20-5.40)
[2023-07-05 04:02] LABS: Bilirubin Small (Negative); Blood, Urine Trace (Negative); Glucose, Urine (Dipstick) Negative (Negative); Ketone, Urine > or equal to 80 mg/dL (Negative); Leukocyte Negative (Negative); Nitrite Negative (Negative); Protein, Urine (Dipstick) 30 mg/dL (Neg-Trace); Urobilinogen 0.2 mg/dL (Less than 2)
[2023-07-05 04:06] LABS: Clarity Clear (Clear)
[2023-07-05 04:10] LABS: Bacteria/HPF None Seen HPF (None Seen); CAUTI Indications for Culture Pelvic or flank pain; Specific Gravity, Urine 1.038 (1.002-1.036); WBC/HPF 0-3 HPF (0-3)
[2023-07-05 04:11] LABS: Pregnancy Test - Urine (BHCG) Negative (Negative)
[2023-07-05 04:12] LABS: Amphetamine Not Detected (NotDetected); Barbiturates Screen Not Detected (NotDetected); Benzodiazepine Screen Not Detected (NotDetected); Cocaine Metabolite Screen Not Detected (NotDetected); Methadone Not Detected (NotDetected); Methamphetamine Not Detected (NotDetected); Opiate Screen Not Detected (NotDetected); Oxycodone Screen Not Detected (NotDetected); Phencyclidine (PCP) Not Detected (NotDetected); Pregu Control Background? CLEAR/WHITE (CLR/WHITE); Pregu Control Bar Appear? YES (CONTROL BAR); Specific Gravity 1.038 (1.002-1.036); THC/Cannabinoid Screen Detected (NotDetected); Tricyclic Screen Not Detected (NotDetected); Urine Culture Reflex No No
[2023-07-05 04:31] LABS: ALT (SGPT) 12 U/L (8-55); AST (SGOT) 18 U/L (5-34); Albumin 4.6 g/dL (3.5-5.0); Alkaline Phosphatase 59 U/L (40-110); Anion Gap 19 mmol/L (10-20); BUN (Urea Nitrogen) 20 mg/dL (7.0-18.7); Bilirubin, Total 1.6 mg/dL (0.2-1.2); Calc. Creatinine Clearance 0 mL/min (70-130); Calcium 10.4 mg/dL (7.8-10.44); Carbon Dioxide 19 mmol/L (22-29); Chloride 106 mmol/L (98-107); Estimated GFR 114; Globulin 3.7 g/dL (2.4-3.5); Glucose 105 mg/dL (70-105); Lipase 21 U/L (8-78); Potassium 2.9 mmol/L (3.5-5.1); Protein, Total 8.3 g/dL (6.0-8.3); Sodium 141 mmol/L (136-145)
[2023-07-05] MEDS ORDERED: Haloperidol Lactate 5 MG/ML VIAL ONE (04:47)
[2023-07-05] MEDS ORDERED: Potassium Chloride 20 MEQ TAB ONE (04:48)
[2023-07-05] MEDS ORDERED: Dicyclomine 20 MG/2 ML VIAL ONE (04:48)
[2023-07-05] MEDS ORDERED: Potassium Chloride 20 MEQ (100 mL) BAG ONE (04:49)
== END 2023-07-05 07:56 | disposition home or self-care (01) ==
LOC: ERS 03:13
DX: R11.2 Nausea with vomiting, unspecified (principal); E87.6 Hypokalemia; Z55.0 Illiteracy and low-level literacy
CPT/HCPCS: 80053; 80306; 81001; 81025; 83690; 85025; 96361; 96365; 96366; 96372; 96375; J1630; J2405; J3480

== ENCOUNTER 2023-08-03 22:25 | Emergency (ER) | payer SELFPAY ==
[2023-08-03] MEDS ORDERED: Metoclopramide HCl 10 MG (2 mL) VIAL ONE (23:59)
[2023-08-03] MEDS ORDERED: diphenhydrAMINE 50 MG/ML VIAL ONE (23:59)
[2023-08-03] MEDS ORDERED: Ketorolac Tromethamine 30 MG (1 mL) VIAL ONE (23:59)
[2023-08-04] MEDS ORDERED: Ketorolac Tromethamine 30 MG (1 mL) VIAL ONE
[2023-08-04] MEDS ORDERED: Ondansetron PF 4 MG/2 ML Vial ONE
[2023-08-04 00:15] LABS: #Basophils 0.04 10x3/uL (0.0-0.2); #Eosinphils Less than 0.03 10x3/uL (0.0-0.7); %Basophils 0.4 % (0.0-1.0); %Eosinophils 0.1 % (0.0-10.0); %Lymphocytes 10.4 % (21.0-51.0); %Monocytes 2.7 % (0.0-10.0); %Neutrophils 86.1 % (42.0-75.0); Hematocrit 38.6 % (36.0-47.0); Hemoglobin 13.4 g/dL (12.0-16.0); Mean Corpuscular HGB CONC 34.7 g/dL (32.0-36.0); Mean Corpuscular Hemoglobin 29.5 pg (27.0-31.0); Mean Platelet Volume 9.4 fL (7.4-10.4); Platelet Count 444 10x3/uL (130-400); RBC Distribution Width 12.7 % (11.5-14.5); Red Blood Cell (RBC) Count 4.54 mill/uL (4.20-5.40)
[2023-08-04 00:36] LABS: ALT (SGPT) 8 U/L (8-55); AST (SGOT) 20 U/L (5-34); Albumin 4.5 g/dL (3.5-5.0); Alkaline Phosphatase 63 U/L (40-110); Anion Gap 16 mmol/L (10-20); BUN (Urea Nitrogen) 16 mg/dL (7.0-18.7); Bilirubin, Total 0.7 mg/dL (0.2-1.2); Calc. Creatinine Clearance 0 mL/min (70-130); Calcium 10.7 mg/dL (7.8-10.44); Carbon Dioxide 18 mmol/L (22-29); Chloride 104 mmol/L (98-107); Estimated GFR 126; Globulin 3.7 g/dL (2.4-3.5); Glucose 144 mg/dL (70-105); Lipase 23 U/L (8-78); Potassium 3.1 mmol/L (3.5-5.1); Protein, Total 8.2 g/dL (6.0-8.3); Sodium 135 mmol/L (136-145)
[2023-08-04 00:53] LABS: BHCG - Serum Negative (NEGATIVE); Pregs Control Background? CLEAR/WHITE (CLR/WHITE); Pregs Control Bar Appear? YES (CONTROL BAR)
[2023-08-04 01:02] LABS: Bacteria/HPF None Seen HPF (None Seen); Bilirubin Negative (Negative); Blood, Urine Trace (Negative); CAUTI Indications for Culture Pelvic or flank pain; Clarity Clear (Clear); Glucose, Urine (Dipstick) Normal (Negative); Ketone, Urine 150 mg/dL (Negative); Leukocyte Negative Leu/uL (Negative); Mucous/LPF Rare LPF (<2+); Nitrite Negative (Negative); Protein, Urine (Dipstick) 50 mg/dL (Neg-Trace); Specific Gravity, Urine 1.026 (1.002-1.036); Squamous Epithelial 0-3 HPF (0-3); Urobilinogen Normal mg/dL (Less than 2); WBC/HPF 0-3 HPF (0-3); pH, Urine 8.5 (5.0-9.0)
[2023-08-04 01:03] LABS: Urine Culture Reflex No No
[2023-08-04 01:11] LABS: Amphetamine Not Detected (NotDetected); Barbiturates Screen Not Detected (NotDetected); Benzodiazepine Screen Not Detected (NotDetected); Cocaine Metabolite Screen Not Detected (NotDetected); Methadone Not Detected (NotDetected); Methamphetamine Not Detected (NotDetected); Opiate Screen Not Detected (NotDetected); Oxycodone Screen Not Detected (NotDetected); Phencyclidine (PCP) Not Detected (NotDetected); THC/Cannabinoid Screen Detected (NotDetected); Tricyclic Screen Not Detected (NotDetected)
[2023-08-04] MEDS ORDERED: Famotidine/PF 20 mg/2ml Vial ONE (01:33)
[2023-08-04] MEDS ORDERED: Potassium Chloride 20 MEQ TAB ONE (01:33)
== END 2023-08-04 01:46 | disposition home or self-care (01) ==
LOC: ERS 22:25
DX: G43.909 Migraine, unspecified, not intractable, without status migrainosus (principal); R10.13 Epigastric pain; E87.6 Hypokalemia; R11.2 Nausea with vomiting, unspecified
CPT/HCPCS: 36415; 80053; 80306; 81001; 83690; 84703; 85025; 96365; 96375; J1200; J1885; J2405; J2765; S0028

== ENCOUNTER 2023-10-15 09:55 | Outpatient (CLI) | payer BC | END 2023-10-15 09:56 | disposition home or self-care (01) | LOC: RAD 09:55 | PROVIDERS: ATTEND Nurse Practitioner Family | DX: S99.922D Unspecified injury of left foot, subsequent encounter (principal); M79.89 Other specified soft tissue disorders; R93.7 Abnormal findings on diagnostic imaging of other parts of musculoskeletal system ==

== ENCOUNTER 2023-12-27 16:37 | Emergency (ER) | payer BC ==
[2023-12-27] MEDS ORDERED: Ketorolac Tromethamine 30 MG (1 mL) VIAL ONE (18:09)
== END 2023-12-27 18:20 | disposition home or self-care (01) ==
LOC: ERS 16:37
DX: S93.402A Sprain of unspecified ligament of left ankle, initial encounter (principal); W20.8XXA Other cause of strike by thrown, projected or falling object, initial encounter
CPT/HCPCS: 96372; 99283; J1885

== ENCOUNTER 2024-03-31 08:46 | Emergency (ER) | payer BC, SELFPAY ==
[2024-03-31] MEDS ORDERED: diphenhydrAMINE 50 MG/ML VIAL ONE (11:01)
[2024-03-31] MEDS ORDERED: Metoclopramide HCl 10 MG (2 mL) VIAL ONE ×2 (11:01→11:03)
== END 2024-03-31 13:19 | disposition home or self-care (01) ==
LOC: ERS 08:46
DX: U07.1 COVID-19 (principal); J11.1 Influenza due to unidentified influenza virus with other respiratory manifestations
CPT/HCPCS: 87428; 96374; 96375; J1200; J2765

== ENCOUNTER 2024-09-23 22:19 | Emergency (ER) | payer BC ==
[2024-09-23 23:55] LABS: #Basophils 0.04 10x3/uL (0.0-0.2); #Eosinophils Less than 0.03 10x3/uL (0.0-0.7); #Monocytes 0.33 10x3/uL (0.11-0.59); #Neutrophils 11.34 10x3/uL (1.40-6.50); %Basophils 0.3 % (0.0-1.0); %Eosinophils 0.0 % (0.0-10.0); %Lymphocytes 10.6 % (21.0-51.0); %Monocytes 2.5 % (0.0-10.0); %Neutrophils 86.3 % (42.0-75.0); BHCG - Serum Negative (NEGATIVE); Hematocrit 44.5 % (36.0-47.0); Hemoglobin 15.0 g/dL (12.0-16.0); Mean Corpuscular Hemoglobin 29.1 pg (27.0-31.0); Mean Corpuscular Volume 86.4 fL (78.0-98.0); Platelet Count 507 10x3/uL (130-400); Pregs Control Background? CLEAR/WHITE (CLR/WHITE); Pregs Control Bar Appear? YES (CONTROL BAR); Red Blood Cell (RBC) Count 5.15 mill/uL (4.20-5.40); White Blood Cell (WBC) Count 13.14 10x3/uL (4.8-10.8)
[2024-09-23 23:59] LABS: ALT (SGPT) 10 U/L (Less than 34); AST (SGOT) 29 U/L (11-34); Albumin 5.0 g/dL (3.1-4.5); Alkaline Phosphatase 100 U/L (40-110); Anion Gap 21 mmol/L (10-20); BUN (Urea Nitrogen) 15 mg/dL (7.0-18.7); Bilirubin, Total 0.7 mg/dL (0.3-1.2); Calc. Creatinine Clearance 0 mL/min (70-130); Calcium 10.7 mg/dL (7.8-10.44); Carbon Dioxide 21 mmol/L (22-29); Chloride 105 mmol/L (98-107); Globulin 4.4 g/dL (2.4-3.5); Glucose 128 mg/dL (70-105); Lipase 21 U/L (8-78); Potassium 3.3 mmol/L (3.5-5.1); Sodium 144 mmol/L (136-145)
[2024-09-24] MEDS ORDERED: diphenhydrAMINE 50 MG/ML VIAL ONE (00:12)
[2024-09-24 01:19] LABS: Bacteria/HPF None Seen HPF (None Seen); CAUTI Indications for Culture Dysuria,urgency,freq; Glucose, Urine (Dipstick) Normal (Negative); Leukocyte Negative Leu/uL (Negative); Mucous/LPF 1+ LPF (<2+); Protein, Urine (Dipstick) 30 mg/dL (Neg-Trace); Specific Gravity, Urine 1.030 (1.002-1.036); WBC/HPF 0-3 HPF (0-3)
[2024-09-24 01:20] LABS: Pregnancy Test - Urine (BHCG) Negative (Negative); Pregu Control Background? CLEAR/WHITE (CLR/WHITE); Pregu Control Bar Appear? YES (CONTROL BAR)
[2024-09-24 01:21] LABS: Urine Culture Reflex No No
[2024-09-24 01:26] LABS: Cocaine Metabolite Screen Negative (Negative); THC/Cannabinoid Screen PRELIM POSITIVE (Negative); Tricyclic Screen Negative (Negative)
== END 2024-09-24 01:45 | disposition home or self-care (01) ==
LOC: ERS 22:19
DX: R11.2 Nausea with vomiting, unspecified (principal); F12.10 Cannabis abuse, uncomplicated; Z87.891 Personal history of nicotine dependence
CPT/HCPCS: 80053; 80306; 81001; 81025; 83690; 84703; 85025; 96360; 96361; J1200; J1630; Q0162

== ENCOUNTER 2024-09-25 06:35 | Emergency (ER) | payer BC ==
[2024-09-25 08:09] LABS: Pregnancy Test - Urine (BHCG) Negative (Negative); Pregu Control Background? CLEAR/WHITE (CLR/WHITE); Pregu Control Bar Appear? YES (CONTROL BAR)
[2024-09-25] MEDS ORDERED: Metoclopramide HCl 10 MG (2 mL) VIAL ONE (08:09)
[2024-09-25 08:10] LABS: Bacteria/HPF None Seen HPF (None Seen); CAUTI Indications for Culture Acute Hematuria; Glucose, Urine (Dipstick) Normal (Negative); Leukocyte Negative Leu/uL (Negative); Protein, Urine (Dipstick) 20 mg/dL (Neg-Trace); Specific Gravity, Urine 1.038 (1.002-1.036); WBC/HPF 0-3 HPF (0-3)
[2024-09-25 08:11] LABS: Urine Culture Reflex No No
[2024-09-25 08:19] LABS: #Basophils 0.04 10x3/uL (0.0-0.2); #Eosinophils 0.21 10x3/uL (0.0-0.7); #Monocytes 0.65 10x3/uL (0.11-0.59); #Neutrophils 6.67 10x3/uL (1.40-6.50); %Basophils 0.4 % (0.0-1.0); %Eosinophils 2.2 % (0.0-10.0); %Lymphocytes 18.9 % (21.0-51.0); %Monocytes 6.9 % (0.0-10.0); %Neutrophils 71.4 % (42.0-75.0); Hematocrit 40.7 % (36.0-47.0); Hemoglobin 13.7 g/dL (12.0-16.0); Mean Corpuscular Hemoglobin 29.0 pg (27.0-31.0); Mean Corpuscular Volume 86.0 fL (78.0-98.0); Platelet Count 340 10x3/uL (130-400); Red Blood Cell (RBC) Count 4.73 mill/uL (4.20-5.40); White Blood Cell (WBC) Count 9.36 10x3/uL (4.8-10.8)
[2024-09-25 08:35] LABS: Cocaine Metabolite Screen Negative (Negative); THC/Cannabinoid Screen PRELIM POSITIVE (Negative); Tricyclic Screen Negative (Negative)
[2024-09-25 08:39] LABS: Troponin I Less than 0.010 ng/mL (< 0.028)
[2024-09-25 08:40] LABS: ALT (SGPT) 12 U/L (Less than 34); AST (SGOT) 26 U/L (11-34); Acetaminophen Less than 10 mcg/mL (Less than 10); Albumin 4.6 g/dL (3.1-4.5); Alkaline Phosphatase 83 U/L (40-110); Anion Gap 19 mmol/L (10-20); BUN (Urea Nitrogen) 18 mg/dL (7.0-18.7); Bilirubin, Total 1.1 mg/dL (0.3-1.2); CK (CPK) 67 U/L (29-168); Calc. Creatinine Clearance 0 mL/min (70-130); Calcium 9.8 mg/dL (7.8-10.44); Carbon Dioxide 20 mmol/L (22-29); Chloride 105 mmol/L (98-107); Globulin 3.6 g/dL (2.4-3.5); Glucose 94 mg/dL (70-105); Potassium 3.7 mmol/L (3.5-5.1); Salicylate Less than 8.0 mg/dL (Less than 8.0); Sodium 140 mmol/L (136-145)
[2024-09-25] MEDS ORDERED: Lidocaine Viscous Sol 2% 15 ml UD Cup ONE (08:53)
[2024-09-25] MEDS ORDERED: Mag-Al 1200 mg/1200 mg/30 ML UDCUP ONE (08:53)
[2024-09-25] MEDS ORDERED: Pantoprazole 40 MG VIAL ONE (09:17)
[2024-09-25] MEDS ORDERED: diphenhydrAMINE 50 MG/ML VIAL ONE (09:24)
[2024-09-25] MEDS ORDERED: Iopamidol-370 76% 500 ML MDV (1 ML CHARGE) ONE (10:58)
== END 2024-09-25 12:30 | disposition home or self-care (01) ==
LOC: ERS 06:35
DX: R11.2 Nausea with vomiting, unspecified (principal); F12.10 Cannabis abuse, uncomplicated; Z87.891 Personal history of nicotine dependence
CPT/HCPCS: 71045; 74177; 76705; 80053; 80306; 80307; 81001; 81025; 82550; 84484; 85025; 93005; 96365; 96367; 96375; J1200; J2470; J2765; Q9967

== ENCOUNTER 2024-11-03 10:48 | Emergency (ER) | payer BC ==
[2024-11-03 11:40] LABS: #Basophils 0.04 10x3/uL (0.0-0.2); #Eosinophils 0.12 10x3/uL (0.0-0.7); #Monocytes 0.44 10x3/uL (0.11-0.59); #Neutrophils 6.45 10x3/uL (1.40-6.50); %Basophils 0.4 % (0.0-1.0); %Eosinophils 1.3 % (0.0-10.0); %Lymphocytes 25.0 % (21.0-51.0); %Monocytes 4.7 % (0.0-10.0); %Neutrophils 68.4 % (42.0-75.0); Hematocrit 40.2 % (36.0-47.0); Hemoglobin 13.5 g/dL (12.0-16.0); Mean Corpuscular Hemoglobin 28.6 pg (27.0-31.0); Mean Corpuscular Volume 85.2 fL (78.0-98.0); Platelet Count 408 10x3/uL (130-400); Red Blood Cell (RBC) Count 4.72 mill/uL (4.20-5.40); White Blood Cell (WBC) Count 9.43 10x3/uL (4.8-10.8)
[2024-11-03 11:51] LABS: Lipase 36 U/L (8-78); Magnesium 2.1 mg/dL (1.6-2.6)
[2024-11-03] MEDS ORDERED: Ondansetron PF 4 MG/2 ML Vial ONE (11:51)
[2024-11-03] MEDS ORDERED: Ketorolac Tromethamine 30 MG (1 mL) VIAL ONE (11:51)
[2024-11-03 11:52] LABS: Acetaminophen Less than 10 mcg/mL (Less than 10); Salicylate Less than 8.0 mg/dL (Less than 8.0)
[2024-11-03 11:53] LABS: ALT (SGPT) 10 U/L (Less than 34); AST (SGOT) 25 U/L (11-34); Albumin 4.2 g/dL (3.1-4.5); Alkaline Phosphatase 72 U/L (40-110); Anion Gap 15 mmol/L (10-20); BUN (Urea Nitrogen) 10 mg/dL (7.0-18.7); Bilirubin, Total 0.5 mg/dL (0.3-1.2); CK (CPK) 120 U/L (29-168); Calc. Creatinine Clearance 0 mL/min (70-130); Calcium 10.1 mg/dL (7.8-10.44); Carbon Dioxide 20 mmol/L (22-29); Chloride 109 mmol/L (98-107); Globulin 3.7 g/dL (2.4-3.5); Glucose 109 mg/dL (70-105); Potassium 3.4 mmol/L (3.5-5.1); Sodium 141 mmol/L (136-145)
[2024-11-03 11:58] LABS: BHCG - Serum Negative (NEGATIVE); Pregs Control Background? CLEAR/WHITE (CLR/WHITE); Pregs Control Bar Appear? YES (CONTROL BAR)
== END 2024-11-03 12:55 | disposition home or self-care (01) ==
LOC: ERS 10:48
DX: K52.9 Noninfective gastroenteritis and colitis, unspecified (principal); Z87.891 Personal history of nicotine dependence
CPT/HCPCS: 71045; 80053; 80307; 82550; 83690; 83735; 84703; 85025; 93005; 96361; 96374; 96375; J1885; J2405

== ENCOUNTER 2024-11-04 23:09 | Emergency (ER) | payer BC ==
[2024-11-04 23:41] LABS: #Basophils 0.04 10x3/uL (0.0-0.2); #Eosinophils 0.05 10x3/uL (0.0-0.7); #Monocytes 0.42 10x3/uL (0.11-0.59); #Neutrophils 6.70 10x3/uL (1.40-6.50); %Basophils 0.4 % (0.0-1.0); %Eosinophils 0.6 % (0.0-10.0); %Lymphocytes 19.8 % (21.0-51.0); %Monocytes 4.7 % (0.0-10.0); %Neutrophils 74.3 % (42.0-75.0); Hematocrit 37.9 % (36.0-47.0); Hemoglobin 12.6 g/dL (12.0-16.0); Mean Corpuscular Hemoglobin 28.6 pg (27.0-31.0); Mean Corpuscular Volume 86.1 fL (78.0-98.0); Platelet Count 357 10x3/uL (130-400); Red Blood Cell (RBC) Count 4.40 mill/uL (4.20-5.40); White Blood Cell (WBC) Count 9.01 10x3/uL (4.8-10.8)
[2024-11-04 23:59] LABS: Anion Gap 18 mmol/L (10-20); BUN (Urea Nitrogen) 18 mg/dL (7.0-18.7); Calc. Creatinine Clearance 0 mL/min (70-130); Calcium 9.6 mg/dL (7.8-10.44); Carbon Dioxide 18 mmol/L (22-29); Chloride 108 mmol/L (98-107); Glucose 93 mg/dL (70-105); Potassium 3.0 mmol/L (3.5-5.1); Sodium 141 mmol/L (136-145)
[2024-11-05] MEDS ORDERED: Ondansetron PF 4 MG/2 ML Vial ONE (01:12)
[2024-11-05] MEDS ORDERED: Ketorolac Tromethamine 30 MG (1 mL) VIAL ONE (01:12)
[2024-11-05] MEDS ORDERED: Famotidine/PF 20 mg/2ml Vial ONE (01:13)
[2024-11-05 01:48] LABS: Acetaminophen Less than 10 mcg/mL (Less than 10); Salicylate Less than 8.0 mg/dL (Less than 8.0)
[2024-11-05 01:49] LABS: ALT (SGPT) 10 U/L (Less than 34); AST (SGOT) 21 U/L (11-34); Albumin 4.5 g/dL (3.1-4.5); Alkaline Phosphatase 72 U/L (40-110); Anion Gap 20 mmol/L (10-20); BUN (Urea Nitrogen) 20 mg/dL (7.0-18.7); Bilirubin, Total 0.9 mg/dL (0.3-1.2); CK (CPK) 92 U/L (29-168); Calc. Creatinine Clearance 0 mL/min (70-130); Calcium 10.3 mg/dL (7.8-10.44); Carbon Dioxide 17 mmol/L (22-29); Chloride 107 mmol/L (98-107); Globulin 3.7 g/dL (2.4-3.5); Glucose 103 mg/dL (70-105); Lipase 21 U/L (8-78); Magnesium 1.9 mg/dL (1.6-2.6); Potassium 3.1 mmol/L (3.5-5.1); Sodium 141 mmol/L (136-145)
[2024-11-05 03:50] LABS: BHCG - Serum Negative (NEGATIVE); Pregs Control Background? CLEAR/WHITE (CLR/WHITE); Pregs Control Bar Appear? YES (CONTROL BAR)
== END 2024-11-05 04:21 | disposition home or self-care (01) ==
LOC: ERS 23:09
DX: R11.2 Nausea with vomiting, unspecified (principal); F12.90 Cannabis use, unspecified, uncomplicated; Z87.891 Personal history of nicotine dependence
CPT/HCPCS: 36415; 80048; 80053; 80307; 82550; 83690; 83735; 84703; 85025; 96374; 96375; 96376; J1630; J1885; J2405; J3010

== ENCOUNTER 2024-11-06 03:26 | Emergency (ER) | payer BC ==
[2024-11-06 04:05] LABS: #Basophils 0.05 10x3/uL (0.0-0.2); #Eosinophils 0.11 10x3/uL (0.0-0.7); #Monocytes 0.46 10x3/uL (0.11-0.59); #Neutrophils 3.68 10x3/uL (1.40-6.50); %Basophils 0.7 % (0.0-1.0); %Eosinophils 1.6 % (0.0-10.0); %Lymphocytes 36.4 % (21.0-51.0); %Monocytes 6.8 % (0.0-10.0); %Neutrophils 54.4 % (42.0-75.0); Hematocrit 37.3 % (36.0-47.0); Hemoglobin 12.6 g/dL (12.0-16.0); Mean Corpuscular Hemoglobin 28.5 pg (27.0-31.0); Mean Corpuscular Volume 84.4 fL (78.0-98.0); Platelet Count 346 10x3/uL (130-400); Red Blood Cell (RBC) Count 4.42 mill/uL (4.20-5.40); White Blood Cell (WBC) Count 6.78 10x3/uL (4.8-10.8)
[2024-11-06 04:23] LABS: ALT (SGPT) 13 U/L (Less than 34); AST (SGOT) 30 U/L (11-34); Albumin 4.3 g/dL (3.1-4.5); Alkaline Phosphatase 68 U/L (40-110); Anion Gap 20 mmol/L (10-20); BUN (Urea Nitrogen) 14 mg/dL (7.0-18.7); Bilirubin, Total 0.9 mg/dL (0.3-1.2); Calc. Creatinine Clearance 0 mL/min (70-130); Calcium 10.0 mg/dL (7.8-10.44); Carbon Dioxide 16 mmol/L (22-29); Chloride 108 mmol/L (98-107); Globulin 3.4 g/dL (2.4-3.5); Glucose 93 mg/dL (70-105); Potassium 3.8 mmol/L (3.5-5.1); Sodium 140 mmol/L (136-145)
[2024-11-06 04:46] LABS: Magnesium 2.0 mg/dL (1.6-2.6)
[2024-11-06 04:47] LABS: BHCG - Serum Negative (NEGATIVE); Pregs Control Background? CLEAR/WHITE (CLR/WHITE); Pregs Control Bar Appear? YES (CONTROL BAR)
[2024-11-06] MEDS ORDERED: Ketorolac Tromethamine 30 MG (1 mL) VIAL ONE (05:44)
[2024-11-06] MEDS ORDERED: Famotidine/PF 20 mg/2ml Vial ONE (05:44)
== END 2024-11-06 06:07 | disposition home or self-care (01) ==
LOC: ERS 03:26
DX: R06.02 Shortness of breath (principal); E86.0 Dehydration; Z55.6 Problems related to health literacy; Z87.891 Personal history of nicotine dependence
CPT/HCPCS: 36416; 71045; 80053; 83735; 84484; 84703; 85025; 93005; 96374; 96375; J1885

== ENCOUNTER 2025-01-10 08:43 | Emergency (ER) | payer BC ==
[2025-01-10] MEDS ORDERED: diphenhydrAMINE 50 MG/ML VIAL ONE (09:31)
[2025-01-10 09:51] LABS: BHCG - Serum Negative (NEGATIVE); Pregs Control Background? CLEAR/WHITE (CLR/WHITE); Pregs Control Bar Appear? YES (CONTROL BAR)
[2025-01-10 09:58] LABS: ALT (SGPT) 10 U/L (Less than 34); AST (SGOT) 29 U/L (11-34); Albumin 5.0 g/dL (3.1-4.5); Alkaline Phosphatase 74 U/L (40-110); Anion Gap 20 mmol/L (10-20); BUN (Urea Nitrogen) 12 mg/dL (7.0-18.7); Bilirubin, Total 0.8 mg/dL (0.3-1.2); Calc. Creatinine Clearance 0 mL/min (70-130); Calcium 10.9 mg/dL (7.8-10.44); Carbon Dioxide 18 mmol/L (22-29); Chloride 106 mmol/L (98-107); Globulin 3.5 g/dL (2.4-3.5); Glucose 138 mg/dL (70-105); Lipase 18 U/L (8-78); Potassium 3.4 mmol/L (3.5-5.1); Sodium 141 mmol/L (136-145)
[2025-01-10 10:13] LABS: #Basophils 0.07 10x3/uL (0.0-0.2); #Eosinophils Less than 0.03 10x3/uL (0.0-0.7); #Monocytes 0.36 10x3/uL (0.11-0.59); #Neutrophils 14.14 10x3/uL (1.40-6.50); %Basophils 0.4 % (0.0-1.0); %Eosinophils 0.0 % (0.0-10.0); %Lymphocytes 11.4 % (21.0-51.0); %Monocytes 2.2 % (0.0-10.0); %Neutrophils 85.4 % (42.0-75.0); Hematocrit 42.3 % (36.0-47.0); Hemoglobin 14.0 g/dL (12.0-16.0); Mean Corpuscular Hemoglobin 28.0 pg (27.0-31.0); Mean Corpuscular Volume 84.6 fL (78.0-98.0); Platelet Count 529 10x3/uL (130-400); Red Blood Cell (RBC) Count 5.00 mill/uL (4.20-5.40); White Blood Cell (WBC) Count 16.55 10x3/uL (4.8-10.8)
[2025-01-10 13:01] LABS: Bacteria/HPF None Seen HPF (None Seen); CAUTI Indications for Culture Dysuria,urgency,freq; Glucose, Urine (Dipstick) Normal (Negative); Leukocyte Negative Leu/uL (Negative); Protein, Urine (Dipstick) 50 mg/dL (Neg-Trace); Specific Gravity, Urine 1.029 (1.002-1.036); WBC/HPF 0-3 HPF (0-3)
[2025-01-10 13:04] LABS: Urine Culture Reflex No No
== END 2025-01-10 13:32 | disposition home or self-care (01) ==
LOC: ERS 08:43
DX: E86.0 Dehydration (principal); R11.2 Nausea with vomiting, unspecified; Z87.891 Personal history of nicotine dependence
CPT/HCPCS: 76856; 80053; 81001; 83690; 84703; 85025; 96361; 96374; 96375; J1200; J1630

== ENCOUNTER 2025-01-23 08:06 | Emergency (ER) | payer BC ==
[2025-01-23] MEDS ORDERED: diphenhydrAMINE 50 MG/ML VIAL ONE (08:40)
[2025-01-23] MEDS ORDERED: Metoclopramide HCl 10 MG (2 mL) VIAL ONE (08:40)
[2025-01-23 08:41] LABS: #Basophils 0.04 10x3/uL (0.0-0.2); #Eosinophils 0.21 10x3/uL (0.0-0.7); #Monocytes 0.58 10x3/uL (0.11-0.59); #Neutrophils 5.87 10x3/uL (1.40-6.50); %Basophils 0.4 % (0.0-1.0); %Eosinophils 2.3 % (0.0-10.0); %Lymphocytes 25.5 % (21.0-51.0); %Monocytes 6.4 % (0.0-10.0); %Neutrophils 65.2 % (42.0-75.0); Hematocrit 37.8 % (36.0-47.0); Hemoglobin 13.1 g/dL (12.0-16.0); Mean Corpuscular Hemoglobin 28.8 pg (27.0-31.0); Mean Corpuscular Volume 83.1 fL (78.0-98.0); Platelet Count 365 10x3/uL (130-400); Red Blood Cell (RBC) Count 4.55 mill/uL (4.20-5.40); White Blood Cell (WBC) Count 9.02 10x3/uL (4.8-10.8)
[2025-01-23 08:59] LABS: BHCG - Serum Negative (NEGATIVE); Pregs Control Background? CLEAR/WHITE (CLR/WHITE); Pregs Control Bar Appear? YES (CONTROL BAR)
[2025-01-23 09:01] LABS: ALT (SGPT) 8 U/L (Less than 34); AST (SGOT) 22 U/L (11-34); Albumin 4.5 g/dL (3.1-4.5); Alkaline Phosphatase 61 U/L (40-110); Anion Gap 17 mmol/L (10-20); BUN (Urea Nitrogen) 10 mg/dL (7.0-18.7); Bilirubin, Total 0.4 mg/dL (0.3-1.2); Calc. Creatinine Clearance 0 mL/min (70-130); Calcium 9.9 mg/dL (7.8-10.44); Carbon Dioxide 22 mmol/L (22-29); Chloride 106 mmol/L (98-107); Globulin 3.0 g/dL (2.4-3.5); Glucose 123 mg/dL (70-105); Potassium 2.9 mmol/L (3.5-5.1); Sodium 142 mmol/L (136-145)
[2025-01-23] MEDS ORDERED: Potassium Chloride 20 MEQ (100 mL) BAG ONE (09:31)
[2025-01-23] MEDS ORDERED: NS 0.9% w/ 20 MEQ KCL 1,000 ML ONE (09:32)
== END 2025-01-23 12:20 | disposition home or self-care (01) ==
LOC: ERS 08:06
DX: R11.16 Cannabis hyperemesis syndrome (principal); E86.0 Dehydration; E87.6 Hypokalemia; Z79.899 Other long term (current) drug therapy
CPT/HCPCS: 80053; 83605; 84703; 85025; 96361; 96365; 96366; 96375; J1200; J1630; J2765; J3480